=== PATIENT | male | born 1985 | race Caucasian/White ===

== ENCOUNTER 2017-08-20 10:47 | Emergency (ER) | payer OTHER, BC ==
[~2017-08-20] VITALS: Ht 185.4 cm; Wt 106.6 kg
== END 2017-08-20 12:10 | disposition home or self-care (01) ==
LOC: ED 10:47
PROC: 0HQ1XZZ Repair Face Skin, External Approach (ICD-10-PCS; principal; 2017-08-20)
DX: S01.511A Laceration without foreign body of lip, initial encounter (principal); W31.89XA Contact with other specified machinery, initial encounter; Y93.89 Activity, other specified; Y99.0 Civilian activity done for income or pay
CPT/HCPCS: 12011; 99282